=== PATIENT | male | born 1970 | race Caucasian/White ===

== ENCOUNTER 2023-05-25 18:27 | Emergency (ER) | payer OTHER ==
[2023-05-25 18:53] VITALS: BP 133/94; PULSE 88; RESP 18; TEMP 98.9; BMI 27.3
[2023-05-25 19:33] LABS: HEMATOCRIT 46.2 % (35.4-49); HEMOGLOBIN 15.8 G/dL (11.7-16.9); MCH 30.4 pg (25.7-33.7); MCHC 34.2 g/dl (32.0-35.9); MEAN CELL VOLUME 88.8 fl (80-96); MEAN PLT VOLUME 9.7 fl (7.5-11.1); PLATELET COUNT 280.3 10^3/uL (134-434); RDW 14.4 % (11.9-15.9); WHITE BLOOD COUNT 7.2 10^3/uL (4.0-10.8)
[2023-05-25 19:43] LABS: ALBUMIN 4.4 g/dl (3.4-5.0); BILIRUBIN,TOTAL 0.5 mg/dl (0.2-1); CALCIUM 9.6 mg/dl (8.5-10.1); CREATININE 0.9 mg/dl (0.6-1.3); MAGNESIUM 2.1 mg/dL (1.8-2.4); PHOSPHOROUS 3.5 (2.5-4.9); TOT PROT 7.2 g/dl (6.4-8.2)
== END 2023-05-25 20:13 | disposition home or self-care (01) ==
LOC: FER 18:27
DX: R42 Dizziness and giddiness (principal)
CPT/HCPCS: 36415; 80053; 82550; 83735; 84100; 84484; 85027; 93005; 99284-25